=== PATIENT | female | born 1980 | race Caucasian/White ===

== ENCOUNTER 2017-07-05 15:50 | Emergency (ER) | payer BC ==
[2017-07-05] MEDS ORDERED: 0.9 % SODIUM CHLORIDE 1,000 ML IV SCH (17:00)
[2017-07-05] MEDS ORDERED: 0.9 % SODIUM CHLORIDE 1,000 ML IV ONE (17:00)
--- NOTE | 2017-07-05 17:06 | ED Physician Documentation ---
Neuro Symptoms - HISTORIAN Historian: patient - HPI Stated Complaint: weakness Chief Complaint: Overdose Additional Information: pt in [facility] for meth andl etoh w/drawl. had crystal meth and [facility] before admission. was in [facility] 5 weeks out may 17 2017 - reportedly in [facility] met friend std crystal meth. c/o dehydrated and lack of attention at [facility] REQUESTS [facility] DIET AND WATER Onset: other (adm last noct. primary c/o weakness and dizziness and dehydration) Timing: worse Last known Well Date: 05/17/15 Last Known Well Time: 23:00 Last known Well Code/Unknown Code: Known Severity: moderate - CHARACTERS OF DEFICIT New Weakness: other (genl body) Altered Sensation: none Vision Problems: No Impaired Speech/ Swallowing: No Cognition is Usually: alert, oriented x3 Associated Symptoms: none. denies: agitated - ROS MENTAL STATUS: denies: problems with vision, sore throat, trouble swallowing CVS/Resp Upper Extremity Problem: denies: chest pain GI/ DYSPNEA: none. denies: abdominal pain, problems urinating, vomiting, nausea, diarrhea MS/SKIN/LYMPH: other (mild ache all over) - PAST HX Past History: bipolar, other (multi substance abuse) Surgeries/Procedures: other (back lt foot) Allergies/Adverse Reactions: Allergies Allergy/AdvReac Type Severity Reaction Status Date / Time No Known Allergies Allergy Verified 07/05/17 16:34 Home Medications: Ambulatory Orders Medication Instructions Recorded Gabapentin [Neurontin] 300 mg PO QID 07/05/17 Hydroxyzine Pamoate [Vistaril] 25 mg PO Q6 PRN 07/05/17 Mound Carbonate [Mound 300 mg PO BID 07/05/17 Carbonate ER] Melatonin [Melatonin] 5 mg PO HS PRN MDD 10 07/05/17 - FAMILY HX Family History: no significant history - SOCIAL HX Smoking History: cigarettes ( but on chantix) Alcohol Use: heavy Drug Use: methamphetamines - VITAL SIGNS Vital Signs: Vital Signs Temp Pulse Resp BP Pulse Ox 99.6 F 93 H 20 118/65 97 07/05/17 15:50 07/05/17 15:50 07/05/17 15:50 07/05/17 15:50 07/05/17 15:50 - REVIEWED ASSESSMENTS Nursing Assessment Reviewed: Yes Vitals Reviewed: Yes ED Results Lab/Radiology - Lab Results Lab Results: Lab Results 07/05/17 07/05/17 17:15 17:15 WBC 4.10 K/ul K/ul (4.00-12.00) RBC 4.51 M/ul M/ul (3.90-5.20) Hgb 14.1 g/dL g/dL (12.0-16.0) Hct 41.0 % % (34.5-46.5) MCV 90.8 fl fl (80.0-100.0) MCH 31.1 pg pg (28.0-34.0) MCHC 34.3 g/dL g/dL (30.0-36.0) RDW 12.2 % % (11.3-14.3) Plt Count 244 K/mm3 K/mm3 (130-400) Neut % (Auto) 51.3 % % (39.0-79.0) Lymph % (Auto) 38.8 % % (16.0-50.0) [place] % (Auto) 4.7 % % (0.0-11.0) Eos % (Auto) 3.2 % % (0.0-6.8) Baso % (Auto) 0.5 (0.0-1.5) Neut # (Auto) 2.1 # k/uL # k/uL (1.4-7.7) Lymph # (Auto) 1.6 # k/uL # k/uL (0.6-4.0) [place] # (Auto) 0.2 # k/uL # k/uL (0.0-0.9) Eos # (Auto) 0.1 # k/uL # k/uL (0.0-0.6) Baso # (Auto) 0.0 # k/uL # k/uL (0.0-0.5) Reactive Lymphs % 1.5 % % (0.0-5.0) Reactive Lymphs # 0.1 # k/uL # k/uL (0.0-0.8) Sodium 136 mmol/L mmol/L (136-145) Potassium 3.2 mmol/L L mmol/L (3.5-5.1) Chloride 97 mmol/L L mmol/L (98-107) Carbon Dioxide 29 mmol/L mmol/L (22-30) BUN 6 mg/dL L mg/dL (7-17) Creatinine 0.70 mg/dL mg/dL (0.52-1.04) Estimated Creat Clear 124 Est GFR ( Amer) > 60 (60 - ) Est GFR (Non-Af Amer) > 60 (60 - ) Glucose 111 mg/dL H mg/dL (74-106) Calcium 9.1 mg/dL mg/dL (8.4-10.2) Total Bilirubin 1.2 mg/dL mg/dL (0.2-1.3) AST 29 U/L U/L (15-46) ALT 34 U/L U/L (13-69) Alkaline Phosphatase 44 U/L U/L (38-126) Total Protein 6.1 g/dL L g/dL (6.3-8.2) Albumin 3.7 g/dL g/dL (3.5-5.0) Ethyl Alcohol < 10.0 mg/dL mg/dL (0.0-10.0) - Orders Orders: ED Orders Category Date Time Status Place IV Lock 1T Care 07/05/17 17:00 Active ALCOHOL MEDICAL USE ONLY Routine Lab 07/05/17 17:15 Completed CBC/PLATELET/DIFF Routine Lab 07/05/17 17:15 Completed CMP Routine Lab 07/05/17 17:15 Completed DRUG SCREEN URINE MEDICAL ONLY Routine Lab 07/05/17 Ordered URINALYSIS Stat Lab 07/05/17 Ordered 0.9 % Sodium Chloride [Normal Saline] 1,000 ml Med 07/05/17 17:00 Ordered IV Q10H Neuro Symptoms Physical Exam - Physical Exam General Appearance: mild distress HEENT: no apparent trauma, EOM's intact, PERRL Neuro/Psych: alert, oriented x3, mood/affect nml, other (comm) Cranial Nerves: nml as tested Pheripheral Exam: motor nml Neck: normal inspection, supple. No: lymphadenopathy Respiratory: no resp distress, chest non-tender, breath sounds normal CVS: reg rate & rhythm, heart sounds normal Abdomen: non-tender, no distention Skin: color nml, no rash. No: cyanosis, diaphoresis, ecchymosis, skin rash Extremities: non-tender, normal range of motion, no evidence of injury Discharge Clincal Impression: meth/alcohol abuse, dehydrated-mild hypokalemia Comments: home-TRI [facility]ELAYA TAKE POTASSIUM TABL BAL DIET HI FLUIDS-CONT REHAB Condition: Good Disposition: 01 HOME, SELF-CARE Decision to Admit: NO Decision Time: 18:46
[2017-07-05 17:20] LABS: BASOPHILS % 0.5 (0.0-1.5); EOSINOPHILS % 3.2 % (0.0-6.8); MEAN CORPUSCULAR HEMOGLOBIN 31.1 pg (28.0-34.0); MEAN CORPUSCULAR VOLUME 90.8 fl (80.0-100.0); MONOCYTES % 4.7 % (0.0-11.0); NEUTROPHILS # 2.1 # k/uL (1.4-7.7)
[2017-07-05 17:32] LABS: eGFR (African) > 60; eGFR (Non-African) > 60
[2017-07-05 19:12] VITALS: BP 116/62
[2017-07-06 05:20] LABS: APPEARANCE,URINE CLEAR (CLEAR); COLOR,URINE YELLOW (YELLOW); OCCULT BLOOD,URINE NEGATIVE (NEGATIVE); PH URINE 6.5 (5.0 - 8.0); UROBILINOGEN URINE 0.2 Eu (0.2-1.0)
[2017-07-06 05:30] LABS: CANNABINOIDS NEGATIVE ng/mL (< 50); METHYLENEDIOXYMETHAMPHETAMINE NEGATIVE ng/mL (<500)
== END 2017-07-05 18:55 | disposition home or self-care (01) ==
LOC: ED 15:50
DX: E86.0 Dehydration (principal); F10.10 Alcohol abuse, uncomplicated; F15.10 Other stimulant abuse, uncomplicated; E87.6 Hypokalemia
CPT/HCPCS: 80053; 80320; 80377; 81002; 85025; J7030; 96360; 99283; G0480; G0481; S1016